=== PATIENT | male | born 1970 | race Asian ===

== ENCOUNTER 2019-10-27 06:02 | Day surgery (SDC) | payer MEDICAID ==
[~2019-10-27] VITALS: Ht 167.6 cm; Wt 63.5 kg
[2019-10-27] MEDS ORDERED: MIDAZOLAM 2 MG/2 ML VIAL ONE (07:31)
[2019-10-27] MEDS ORDERED: LIDOCAINE 2% 100 MG/5 ML UJET TP ONE (07:31)
[2019-10-27] MEDS ORDERED: fentaNYL 0.05 MG/ML VIAL ONE (07:31)
[2019-10-27] MEDS ORDERED: fentaNYL 0.05 MG/ML VIAL IVP ONE (08:30)
== END 2019-10-27 08:48 | disposition home or self-care (01) ==
LOC: MDS 06:02 → MMU 06:09 → MDS 08:48
PROVIDERS: ATTEND Internal Medicine Gastroenterology
DX: Z12.11 Encounter for screening for malignant neoplasm of colon (principal); E78.5 Hyperlipidemia, unspecified; Z88.0 Allergy status to penicillin; Z79.899 Other long term (current) drug therapy
CPT/HCPCS: 45378; J3010; U0003; 36415; C9803-CS; J2250